=== PATIENT | female | born 1960 | race Caucasian/White ===

== ENCOUNTER 2019-01-06 12:42 | Inpatient (IN) | payer OTHER ==
[~2019-01-06] VITALS: Ht 147.3 cm; Wt 100.2 kg
[~2019-01-06 12:42] MED LIST: ALD25 PO; ANTIVERT/2525 MG PO; ATIVAN1 MG PO; COZ25 PO; COZ50 PO; ECO81 PO; HYD25 PO; LEXAPRO10 MG PO; LIPI10 PO; NIFEDIPINE20 MG PO; OSCD PO; SER25 PO; SEROQUEL25 MG PO; TOP50 PO; TYLENOL PO; Z PO
--- NOTE | 2019-01-06 12:58 | NUR ---
PLACED IN BED 1B FOR EVAL.
[2019-01-06 13:03] VITALS: Ht 147.3 cm; Wt 100.2 kg
--- NOTE | 2019-01-06 13:08 | NUR ---
PER PT HAS HAD SUPRAPUBIC ABDOMINAL PAIN FOR 4 DAYS. PT STS THAT SHE IS ON A HIGH PROTEIN DIET FOR A "GASTRIC SLEEVE" OPERATION. PT STS THAT SHE HAS SOME BOWEL MOVEMENTS BUT THAT IT ISNT HER "NORMAL". PT STS +N/-V. +BOWEL SOUNDS ALL FOUR QUAD. PT STS THAT SHE HAS NEVER HAD THIS PAIN BEFORE BUT SHE BELEIVES SHE IS ONSTIPATED. UPON AUSCULTATION PT HAS LLQ/RLQ PAIN. PT DENIES ANY DYSURIA. VSS. RESP E/U. WILL CONTINUE TO MONITOR.
--- NOTE | 2019-01-06 13:46 | NUR ---
PT TAKEN TO CT.
[2019-01-06 13:51] LABS: BASOPHIL % 0.3 % (0-2); PLATELET COUNT 304 x10^3mcL (130-400); RED CELL DISTRIBUTION WIDTH 14.3 % (11.5-14.5)
--- NOTE | 2019-01-06 13:54 | NUR ---
MEDICATED PER EMAR.
[2019-01-06 14:04] LABS: CALCIUM 9.1 mg/dL (8.5-10.1); CHLORIDE SERUM 104 mmol/L (98-107); CREATININE SERUM 0.9 mg/dL (0.6-1.0); GFR1 > 60 mL/min; GLUCOSE SERUM 98 mg/dL (74-106); POTASSIUM SERUM 4.2 mmol/L (3.5-5.1); SODIUM SERUM 140 mmol/L (136-145)
[2019-01-06 14:08] LABS: ALKALINE PHOSPHATASE 118 U/L (46-116); ALT/SGPT 83 U/L (14-59); AMYLASE 41 U/L (25-115); AST/SGOT 50 U/L (15-37); BILIRUBIN TOTAL 0.3 mg/dL (0.20-1.00); LIPASE 130 IU/L (73-393); TOTAL PROTEIN, SERUM 7.6 g/dL (6.4-8.2)
[2019-01-06 14:10] LABS: ALBUMIN 3.3 g/dL (3.4-5.0)
[2019-01-06] MEDS ORDERED: NOR10 PO (15:12)
[2019-01-06] MEDS ORDERED: LORAZEPAM0.5 MG PO (15:12)
--- NOTE | 2019-01-06 15:26 | NUR ---
PT IN POSITION OF COMFORT. VSS. RESP E/U. WILL CONTINUE TO MONITOR.
--- NOTE | 2019-01-06 16:26 | NUR ---
REPORT GIVEN TO JOSHUA BLACKWELL TO ASSUME CARE OF PT.
--- NOTE | 2019-01-06 16:34 | NUR ---
RECEIVED PT VIA W/C FROM E/D, ACCOMPANIED BY RN. PT A/A/O X 4, CALM, COOPERATIVE; WEARS GLASSES (W/ PT). AMBULATORY, NO GAIT OR BALANCE IMPAIRMENT NOTED WHEN WALKING FROM W/C TO BED. C/O DIZZINESS, DENIES CHEST PAIN OR DISCOMFORT AT THIS TIME. SCD BY BEDSIDE. NO ACUTE RESPIRATORY DISTRESS NOTED. ABD SOFT, ROUND, TENDERNESS UPON PALPATION TO BLQ (C/O INTERMITTENT PULLING PAIN 5/10, EXACERBATED BY TOUCH AND LAYING ON STOMACH/RIGHT SIDE, RELIEVED BY REST AND PAIN MEDICATIONS), NORMOACTIVE BOWEL SOUNDS X 4 QUADS, LAST BM 01/06/19, FORMED. IV SITE RAC 20G, CDI. ORIENTED PT TO ROOM, BED CONTROLS, CALL LIGHT SYSTEM. SIDE RAILS UP X 2, BED IN LOW POSITION. WILL ENDORSE TO RISHI AUGUST.
[2019-01-06 17:03] LABS: CHOLESTEROL/HDL RATIO 3.5
[2019-01-06 17:10] VITALS: BP 115/57
--- NOTE | 2019-01-06 18:00 | NUR ---
PATIENT SEEN AT 1750, NEW ADMISSION FROM ER FOR ABDOMINAL PAINS 4 DAYS [employer] CERTIFIED [employer] PROF[employer]. ALERT AND ORIENTED X 4. DENIES ANY DISCOMFORT AT THIS TIME. ABDOMINAL US COMPLETED AT BEDSIDE. FULL LIQUID FOR DINNER THEN START NS AT 100CC/HR TONITE. CALL GUEVARA WITHIN REACH.
--- NOTE | 2019-01-06 19:17 | NUR ---
HANDOFF REPORT RECEIVED. PATIENT AMBULATING.NOT IN ANY DISTRESS.
--- NOTE | 2019-01-06 20:10 | NUR ---
PT RECIEVED AAO REG RESP NO SOB,ABDO IS SFT WITH ACTIVE BOWEL SOUNDS V/S STABLE,INITIATED THE FLUIDS OF N/S AT 100 CC/HR WITH THE SITE PATENT AND INTACT,NO PAIN REPORTED AT THIS TIME,KEPT CLEAN AND DRY TO TOUCH,CALL LIGHT EASY REACHED AND WILL CONTINUE TO MONITOR.
[2019-01-06 21:23] VITALS: BP 111/57
--- NOTE | 2019-01-07 01:08 | NUR ---
PT SLEEPING SOUNDLY AND WILL CONTINUE TO MONITOR.
[2019-01-07 05:32] VITALS: BP 112/55
[2019-01-07 06:34] LABS: BASOPHIL % 0.3 % (0-2); PLATELET COUNT 273 x10^3mcL (130-400)
--- NOTE | 2019-01-07 06:38 | NUR ---
PY HHAD A RESTING NIGHT NO CHANGE AT THIS TIME,WILL CONTINUE TO MONITOR.
[2019-01-07 06:50] LABS: ALKALINE PHOSPHATASE 99 U/L (46-116); ALT/SGPT 65 U/L (14-59); AST/SGOT 31 U/L (15-37); BILIRUBIN TOTAL 0.4 mg/dL (0.20-1.00); CALCIUM 8.3 mg/dL (8.5-10.1); CARBON DIOXIDE 26.1 mmol/L (21-32); CHLORIDE SERUM 107 mmol/L (98-107); GFR1 > 60 mL/min; GLUCOSE SERUM 84 mg/dL (74-106); MAGNESIUM 1.9 mg/dL (1.8-2.4); POTASSIUM SERUM 4.2 mmol/L (3.5-5.1); SODIUM SERUM 142 mmol/L (136-145); TOTAL PROTEIN, SERUM 6.8 g/dL (6.4-8.2)
[2019-01-07 06:59] LABS: RED CELL DISTRIBUTION WIDTH 14.6 % (11.5-14.5)
[2019-01-07 07:00] LABS: ALBUMIN 2.8 g/dL (3.4-5.0)
[2019-01-07 09:41] VITALS: BP 122/59
[2019-01-07] MEDS ORDERED: CAR1 PO (14:34)
[2019-01-07] MEDS ORDERED: PRI20 PO (14:35)
--- NOTE | 2019-01-07 15:11 | NUR ---
PATIENT REFUSED FLEET ENEMA. STATES SHE HAS BEEN HAVING BOWEL MOVEMENTS TODAY. PATIENT TOOK CARAFATE AT 1311, 01/07/2019 DUE TO PENDING DISCHARGE.
[2019-01-07] MEDS ORDERED: SEN PO (15:17)
[2019-01-07] MEDS ORDERED: APAP500 MG PO (16:06)
[2019-01-07] MEDS ORDERED: COLESTID1 GM PO (16:08)
[2019-01-07 16:16] VITALS: BP 122/67
[2019-01-07 17:08] VITALS: BP 122/67
== END 2019-01-07 17:53 | disposition home or self-care (01) | DRG 244 ==
LOC: ED 12:42 → MU 16:04
PROVIDERS: Emergency Medicine; ADMIT Internal Medicine
DX: K57.30 Diverticulosis of large intestine without perforation or abscess without bleeding (principal); I42.9 Cardiomyopathy, unspecified; I11.0 Hypertensive heart disease with heart failure; E44.1 Mild protein-calorie malnutrition; Z68.42 Body mass index [BMI] 45.0-49.9, adult; I50.32 Chronic diastolic (congestive) heart failure; F41.9 Anxiety disorder, unspecified; R74.0 Nonspecific elevation of levels of transaminase and lactic acid dehydrogenase [LDH]; K59.00 Constipation, unspecified; F31.9 Bipolar disorder, unspecified; Z82.49 Family history of ischemic heart disease and other diseases of the circulatory system; Z88.8 Allergy status to other drugs, medicaments and biological substances; Z90.710 Acquired absence of both cervix and uterus; Z83.3 Family history of diabetes mellitus; Z82.3 Family history of stroke; Z80.0 Family history of malignant neoplasm of digestive organs; Z79.899 Other long term (current) drug therapy
CPT/HCPCS: G0378; J1885; J3010; J7030; Q0092